=== PATIENT | male | born 1965 | race Caucasian/White ===

== ENCOUNTER 2025-02-14 10:28 | Outpatient (AMB) | payer OTHER, SELFPAY ==
--- NOTE | 2025-02-14 10:58 | PD.ORTHCLVIS ---
Vital signs 02/14/25 11:03 Height 1.78 m Height Method Stated Weight 85.814 kg Weight Measurement Method Standing Scale BMI 27.1 BP 124/77 Blood Pressure Source Automatic Cuff Blood Pressure Location Left Upper Arm Position Sitting Respiration 18 Pulse 121 H Pulse Source Monitor Temp 97.5 F Temp Source Temporal Artery Scan Pulse Oximetry (%) 96 Oxygen Delivery Method Room Air Med/Allergies Allergies & Medications Allergies No Known Allergies Allergy (Verified 02/14/25 11:03) Medication Reconciliation Unobtainable 02/14/25 [History Confirmed 02/14/25] Exam Exam Patient is in no acute distress and is cooperative with the examination today. Breathing is nonlabored. In no respiratory distress. Patient has no paraspinal tenderness. Spinal deformity cannot be appreciated. The gait of the patient is nonantalgic Bilateral extremities were evaluated and demonstrates sensation intact to light touch. Palpable pedal pulses are present. No significant edema is present. Bilateral knees were examined and the patient has full strength and range of motion.. The left hip was examined. Patient was able to flex to 90 degrees, adduct to 30 degrees, abduct to 40 degrees, internally rotate to 20 degrees, and externally rotate to 20 degrees. Patient has a negative logroll. Stinchfield is negative. The patient is nontender diffusely to touch. The right hip was examined. Patient was able to flex to 90 degrees, adduct to 30 degrees, abduct to 40 degrees, internally rotate to 10 degrees, and externally rotate to 20 degrees. Patient has a positive logroll and a positive Stinchfield Hip films are 2 years old. This demonstrates a left total hip replacement in alignment position. The right hip demonstrates severe arthritis with complete erosion of the joint space. Assessment and Plan Problem List (1) Avascular necrosis of bone of right hip: Status: Acute Plan: Gavino is a pleasant 59-year-old male with right hip pain and right hip avascular porosis. We will need new x-rays as the last ones are over 2 years old. The pain is affecting his quality life and happiness. He has tried diclofenac and has failed conservative treatment. His range of motion is severely limited We will see him back after his x-rays are done. Office Procedures GNS Level of Care Nursing/Assessment Patient Status: Initial/New Patient Nursing Assessment/Reassesment: Medication Reconciliation, Update PMH in EMR and Vital Signs Coordination of Care: Complex Care and Chronic Disease 1-5, Education Complex Pt/Fam, Consent,records obtained, informed consent, 1 Ins Authorization, Lab and Imaging orders, Results/Orders obtained and Staff clarify orders New Patient Charge New Patient Point Assignment: 1124 New Patient Point Charge: SOFTWARE DATABASE ARCHITECT Level 4 ([id number]) MA Intake Visit Data Collection New Patient or Established: New Patient (never been to [facility]) Reason for Visit:: RIGHT HIP PAIN Seen by Clinical Staff ONLY (RN/MA): No PCP or OBGYN visit in last 3 months: Yes Hx Now: No Do You Feel Safe at Home: Yes Authorities Contacted: N/A Questionairres Past Medical History Past Medical History Have you ever been diagnosed with any of the following: Respiratory Problems Smoking: No Smoking Exposure: No Subjective Visit Visit for: new patient and knee Immunization / Flu Flu Vaccine in the Last 12 Months: Yes Flu Vaccine Exclusion Criteria: Already Received History of Present Illness Chief complaint: right hip pain Patient is a 59-year-old male with right hip pain. This has been ongoing for several years and has worsened recently. He had a left hip replacement done with Dr. Dominguez. He did well from this. He reports that he has difficulty putting on socks and shoes and an in increase in pain recently Pain Pain level (0-10): 10 Pain duration: ALL DAY Pain location: groin Pain quality: sharp Pain timing: increases with activity Associated signs & symptoms: numbness, weakness and stiffness Ambulatory data Ambulatory device: cane Treatments Improvement with previous injections: No Improvement with PT: No Improvement with NSAIDS: no Review of Systems Review of Systems: All systems negative unless otherwise noted in HPI.
[2025-02-14 11:03] VITALS: BP 124/77; PULSE 121; RESP 18; TEMP 36.4; O2SAT 96; BMI 27.1
--- NOTE | 2025-02-14 11:31 | XR_ITS ---
Examination: Right knee 4 views TECHNIQUE: AP oblique lateral axial right knee 4 views Date and time: February 14, 2025 1143 hours INDICATIONS: Right knee pain beginning 6 months ago. FINDINGS: Significant osteopenia No fracture or dislocation Mild narrowing patellofemoral joint Mild narrowing medial lateral joint spaces IMPRESSION: No fracture Mild tricompartment joint narrowing
--- NOTE | 2025-02-14 11:31 | XR_ITS ---
Examination:Right hip AP, lateral, AP pelvis 3 views Technique: Hip AP lateral, AP pelvis, 3 views Exam date and time:February 14, 2025 1139 hours INDICATIONS: Right hip pain beginning 2 years ago. FINDINGS: Advanced right hip osteoarthritis Fragmentation sclerosis and radiolucencies in the right femoral head consistent with advanced avascular necrosis Total left hip arthroplasty with satisfactory alignment IMPRESSION: Advanced right hip osteoarthritis Prominent avascular necrosis right femoral head.
== END 2025-02-14 11:40 | disposition home or self-care (01) ==
LOC: HODSRG 10:28
PROVIDERS: PCP Family Medicine; Referring Provider Family Medicine; Supervising Provider Orthopaedic Surgery Adult Reconstructive Orthopaedic Surgery; Visit Provider Orthopaedic Surgery Adult Reconstructive Orthopaedic Surgery
DX: M87.851 Other osteonecrosis, right femur (principal); M25.551 Pain in right hip; M16.11 Unilateral primary osteoarthritis, right hip; M25.861 Other specified joint disorders, right knee
CPT/HCPCS: 73502; 73564; 99204; G0463

== ENCOUNTER 2025-03-07 14:42 | Outpatient (AMB) | payer OTHER, SELFPAY ==
--- NOTE | 2025-03-07 15:00 | ORTHONT_ITS ---
Vital signs 03/07/25 15:01 Height 1.78 m Height Method Stated Weight 85.049 kg Weight Measurement Method Standing Scale BMI 26.8 BP 97/52 L Blood Pressure Source Automatic Cuff Blood Pressure Location Left Upper Arm Position Sitting Respiration 18 Pulse 93 Pulse Source Monitor Temp 97.8 F Temp Source Temporal Artery Scan Pulse Oximetry (%) 92 L Oxygen Delivery Method Room Air Med/Allergies Allergies & Medications Allergies No Known Allergies Allergy (Verified 03/07/25 15:01) Medication Reconciliation Unobtainable 02/14/25 [History Confirmed 03/07/25] Exam Exam Patient is in no acute distress and is cooperative with the examination today. Breathing is nonlabored. In no respiratory distress. Patient has no paraspinal tenderness. Spinal deformity cannot be appreciated. The gait of the patient is nonantalgic Bilateral extremities were evaluated and demonstrates sensation intact to light touch. Palpable pedal pulses are present. No significant edema is present. Bilateral knees were examined and the patient has full strength and range of motion.. The left hip was examined. Patient was able to flex to 90 degrees, adduct to 30 degrees, abduct to 40 degrees, internally rotate to 20 degrees, and externally rotate to 20 degrees. Patient has a negative logroll. Stinchfield is negative. The patient is nontender diffusely to touch. The right hip was examined. Patient was able to flex to 90 degrees, adduct to 30 degrees, abduct to 40 degrees, internally rotate to 10 degrees, and externally rotate to 20 degrees. Patient has a positive logroll and a positive Stinchfield This demonstrates a left total hip replacement in alignment position. The right hip demonstrates severe arthritis with complete erosion of the joint space. Assessment and Plan Problem List (1) Avascular necrosis of bone of right hip: Status: Acute Plan: Gavino is a pleasant 59-year-old male with right hip pain and right hip avascular necrosis. He has failed conservative treatment and we discussed right total hip replacement as a reasonable option. His pain is affecting his quality of life and his happiness.We would do his surgery from an anterior approach. The nature and purpose of the total hip replacement, alternative method(s) of treatment, the material risks involved, and the possibility of complications were fully explained to the patient. The patient does NOT have any of the following contraindications to SARAH: - Active infection of the hip joint, OR - Active systemic bacteremia, OR - Active skin infection or open wound at surgical site, OR - Neuropathic arthritis, OR - Severe, rapidly progressive neurological disease, OR - Severe medical condition that makes risks of the surgery outweigh the potential benefit The patient was told the most common risks and complications associated with a total hip replacement include, but are not limited to: blood clots in the leg, fatal pulmonary embolism, dislocation of the prosthesis, intraoperative and postoperative fractures of the femur or acetabulum, infection, failure of the prosthesis or grafting materials, complications from anesthesia, reactions to blood transfusions, postoperative leg length inequality, instability of the hip replacement, nerve damage or injury, vascular injury, delayed wound healing, infection, other injury or even . We also discussed that numbness over the anterolateral thigh is common and that a limp may occur. In addition, there are risks associated with anesthesia given during this operation. Also, the patient was told that after undergoing a total hip replacement there may still be persistent pain or disability. The patient was informed that the success of this operation in part depends upon the mechanical devices which are going to be implanted and that these devices can fail or malfunction, and may need to be repaired or replaced and there are no guarantees as to the longevity of this device or its parts and that it or its parts could fail prematurely. The patient was also notified that during the course of surgery, there may be a need to use bone graft from donors, and that any bone graft used will be carefully screened for communicable diseases, including AIDS, hepatitis, Ron- Creutzfeldt, or other diseases, but despite the screening procedures, there is a small chance that they could contract one of these diseases. Finally, the patient was asked to follow completely and fully with all advice and recommended treatments, and that recovery and ultimate outcome are affected by their compliance with recommended treatment. We discussed the risks, benefits and treatment alternatives, and the patient is interested in proceeding with surgery. We will try to set this up as expeditiously as possible.? Office Procedures GNS Level of Care Nursing/Assessment Patient Status: Established Patient Nursing Assessment/Reassesment: Medication Reconciliation, Update PMH in EMR and Vital Signs Coordination of Care: Complex Care and Chronic Disease 1-5, Education Complex Pt/Fam, Consent,records obtained, informed consent, Results/Orders obtained and Staff clarify orders Established Patient Charge Established Patient Point Assignment: 95 Established Patient Point Charge: EP Level 3 (80-115) MA Intake Visit Data Collection New Patient or Established: Established Patient (seen at [facility] within 3 years) Reason for Visit:: FOLLOW UP XRAY RESULTS Seen by Clinical Staff ONLY (RN/MA): No PCP or OBGYN visit in last 3 months: Yes Hx Now: No Do You Feel Safe at Home: Yes Authorities Contacted: N/A Questionairres Past Medical History Past Medical History Have you ever been diagnosed with any of the following: Respiratory Problems Smoking: No Smoking Exposure: No Subjective Visit Visit for: new patient, follow up visit, hip, knee and x-rays Immunization / Flu Flu Vaccine in the Last 12 Months: Yes Flu Vaccine Exclusion Criteria: No Exclusion Criteria and Already Received History of Present Illness Chief complaint: right hip pain Patient is a 59-year-old male with right hip pain. This has been ongoing for several years and has worsened recently. He had a left hip replacement done with Dr. Dominguez. He did well from this. He reports that he has difficulty putting on socks and shoes and an in increase in pain recently. He has tried diclofenac for several years. Pain Pain level (0-10): 6 Pain duration: CONSTANT Pain location: groin, inside (medial) and outside (lateral) Pain quality: sharp, dull and aching Pain timing: increases with activity Associated signs & symptoms: numbness, weakness, stiffness and none Ambulatory data Ambulatory device: cane Treatments Improvement with previous injections: No Improvement with PT: No Improvement with NSAIDS: no Review of Systems Review of Systems: All systems negative unless otherwise noted in HPI.
[2025-03-07 15:01] VITALS: BP 97/52; PULSE 93; RESP 18; TEMP 36.6; O2SAT 92; BMI 26.8
--- NOTE | 2025-03-07 15:09 | XR_ITS ---
Indication: Lumbar spine 3 views TECHNIQUE: AP lateral coned lateral lower lumbar spine 3 views Date and time: March 07, 2025 1520 hours INDICATIONS: Advanced right hip osteoarthritis with avascular necrosis femoral head Lumbar levoscoliosis 20 degrees No lumbar fracture Advanced degenerative disc disease L4-L5 IMPRESSION: Advanced degenerative disease L4-L5
--- NOTE | 2025-03-07 15:09 | XR_ITS ---
Examination: AP pelvis single view Technique one AP pelvis supine single view Date and time: March 07, 2025 1517 hours INDICATIONS: Right hip pain years. FINDINGS: Advanced right hip osteoarthritis Extensive avascular necrosis right femoral head Total left hip arthroplasty with satisfactory alignment IMPRESSION: Advanced right hip osteoarthritis Advanced right hip avascular necrosis
== END 2025-03-07 15:13 | disposition home or self-care (01) ==
LOC: HODSRG 14:42
PROVIDERS: PCP Family Medicine; Referring Provider Family Medicine; Supervising Provider Orthopaedic Surgery Adult Reconstructive Orthopaedic Surgery; Visit Provider Orthopaedic Surgery Adult Reconstructive Orthopaedic Surgery
DX: M87.88 Other osteonecrosis, other site (principal); M25.551 Pain in right hip; M16.11 Unilateral primary osteoarthritis, right hip; M51.369 Other intervertebral disc degeneration, lumbar region without mention of lumbar back pain or lower extremity pain
CPT/HCPCS: 72100; 72170; 99213; G0463

== ENCOUNTER → 2025-03-24 | Outpatient (CLI) | payer MEDICAID, SELFPAY ==
--- NOTE | 2025-03-24 12:00 | XR_ITS ---
Examination: CT bilateral lower extremities, without contrast. 2-D sagittal reconstructions. 2-D coronal reconstructions. 3-D reconstructions. Date and time of exam:March 24, 2025 1225 hours INDICATIONS: Diagnosis primary unilateral osteoarthritis right hip, right hip pain 2 years CTDI: vol (mGy):10.6 DLP: (mGycm):736 Technique: Multiple 1.25 mm axial sections of the bilateral lower extremities without intravenous contrast have been obtained. 2-D sagittal and coronal reconstructions have been obtained. 3-D reconstructions have been obtained. Low dose protocols were performed. One or more of the following dose reduction techniques were used; automated exposure control, adjustment of the mA and/or KV according to patient size, use of iterative reconstruction technique. Findings: Moderate osteopenia Advanced right hip osteoarthritis, severe joint space narrowing Extensive fragmentation and bone destruction involving the right femoral head occupying more than 50% of the articulating surface Total left hip arthroplasty with satisfactory alignment Mild to moderate narrowing medial joint spaces knees No fractures IMPRESSION: Advanced right hip osteoarthritis Extensive avascular necrosis right femoral head
== END | disposition home or self-care (01) ==
PROVIDERS: PCP Family Medicine; Referring Provider Orthopaedic Surgery Adult Reconstructive Orthopaedic Surgery; Visit Provider Orthopaedic Surgery Adult Reconstructive Orthopaedic Surgery
DX: M16.11 Unilateral primary osteoarthritis, right hip (principal); M87.851 Other osteonecrosis, right femur
CPT/HCPCS: 72192; 73700

== ENCOUNTER 2025-07-03 13:37 | Outpatient (AMB) | payer MEDICAID, SELFPAY ==
[2025-07-03 13:50] VITALS: BP 133/81; PULSE 118; RESP 20; TEMP 36.9; O2SAT 95; BMI 27.9
--- NOTE | 2025-07-03 13:50 | ORTHONT_ITS ---
Vital signs 07/03/25 13:50 Height 1.78 m Height Method Stated Weight 88.451 kg Weight Measurement Method Standing Scale BMI 27.9 BP 133/81 H Blood Pressure Source Automatic Cuff Blood Pressure Location Left Upper Arm Position Sitting Respiration 20 Pulse 118 H Pulse Source Monitor Temp 98.5 F Temp Source Temporal Artery Scan Pulse Oximetry (%) 95 Oxygen Delivery Method Room Air Med/Allergies Allergies & Medications Allergies No Known Allergies Allergy (Verified 03/07/25 15:01) Medication Reconciliation Unobtainable 02/14/25 [History Confirmed 07/03/25] Exam Exam Patient is in no acute distress and is cooperative with the examination today. Breathing is nonlabored. In no respiratory distress. Patient has no paraspinal tenderness. Spinal deformity cannot be appreciated. The gait of the patient is nonantalgic Bilateral extremities were evaluated and demonstrates sensation intact to light touch. Palpable pedal pulses are present. No significant edema is present. Bilateral knees were examined and the patient has full strength and range of motion.. The left hip was examined. Patient was able to flex to 90 degrees, adduct to 30 degrees, abduct to 40 degrees, internally rotate to 20 degrees, and externally rotate to 20 degrees. Patient has a negative logroll. Stinchfield is negative. The patient is nontender diffusely to touch. The right hip was examined. Patient was able to flex to 90 degrees, adduct to 30 degrees, abduct to 40 degrees, internally rotate to 10 degrees, and externally rotate to 20 degrees. Patient has a positive logroll and a positive Stinchfield This demonstrates a left total hip replacement in alignment position. The right hip demonstrates severe arthritis with complete erosion of the joint space. Assessment and Plan Problem List (1) Avascular necrosis of bone of right hip: Status: Acute Plan: Gavino is a pleasant 59-year-old male with right hip pain and right hip avascular necrosis. He has failed conservative treatment and we discussed right total hip replacement as a reasonable option. His pain is affecting his quality of life and his happiness.We would do his surgery from an anterior approach. The nature and purpose of the total hip replacement, alternative method(s) of treatment, the material risks involved, and the possibility of complications were fully explained to the patient. The patient does NOT have any of the following contraindications to SARAH: - Active infection of the hip joint, OR - Active systemic bacteremia, OR - Active skin infection or open wound at surgical site, OR - Neuropathic arthritis, OR - Severe, rapidly progressive neurological disease, OR - Severe medical condition that makes risks of the surgery outweigh the potential benefit The patient was told the most common risks and complications associated with a total hip replacement include, but are not limited to: blood clots in the leg, fatal pulmonary embolism, dislocation of the prosthesis, intraoperative and postoperative fractures of the femur or acetabulum, infection, failure of the prosthesis or grafting materials, complications from anesthesia, reactions to blood transfusions, postoperative leg length inequality, instability of the hip replacement, nerve damage or injury, vascular injury, delayed wound healing, infection, other injury or even . We also discussed that numbness over the anterolateral thigh is common and that a limp may occur. In addition, there are risks associated with anesthesia given during this operation. Also, the patient was told that after undergoing a total hip replacement there may still be persistent pain or disability. The patient was informed that the success of this operation in part depends upon the mechanical devices which are going to be implanted and that these devices can fail or malfunction, and may need to be repaired or replaced and there are no guarantees as to the longevity of this device or its parts and that it or its parts could fail prematurely. The patient was also notified that during the course of surgery, there may be a need to use bone graft from donors, and that any bone graft used will be carefully screened for communicable diseases, including AIDS, hepatitis, Ron- Creutzfeldt, or other diseases, but despite the screening procedures, there is a small chance that they could contract one of these diseases. Finally, the patient was asked to follow completely and fully with all advice and recommended treatments, and that recovery and ultimate outcome are affected by their compliance with recommended treatment. We discussed the risks, benefits and treatment alternatives, and the patient is interested in proceeding with surgery. We will try to set this up as expeditiously as possible.? Office Procedures GNS Level of Care Nursing/Assessment Patient Status: Established Patient Nursing Assessment/Reassesment: Medication Reconciliation, Update PMH in EMR and Vital Signs Coordination of Care: Complex Care and Chronic Disease 1-5, Education Complex Pt/Fam, Consent,records obtained, informed consent, Results/Orders obtained and Staff clarify orders Established Patient Charge Established Patient Point Assignment: 95 Established Patient Point Charge: EP Level 3 (80-115) MA Intake Visit Data Collection New Patient or Established: Established Patient (seen at [facility] within 3 years) Reason for Visit:: FOLLOW UP XRAY RESULTS Seen by Clinical Staff ONLY (RN/MA): No PCP or OBGYN visit in last 3 months: Yes Hx Now: No Do You Feel Safe at Home: Yes Authorities Contacted: N/A Questionairres Past Medical History Past Medical History Have you ever been diagnosed with any of the following: Respiratory Problems Smoking: No Smoking Exposure: No Subjective Visit Visit for: follow up visit, hip and x-rays Immunization / Flu Flu Vaccine in the Last 12 Months: Yes Flu Vaccine Exclusion Criteria: No Exclusion Criteria History of Present Illness Chief complaint: right hip pain Patient is a 60-year-old male with right hip pain. This has been ongoing for several years and has worsened recently. He had a left hip replacement done with Dr. Dominguez. He did well from this. He reports that he has difficulty putting on socks and shoes and an in increase in pain recently. He has tried diclofenac for several years. We will see the patient back for surgery Pain Pain level (0-10): 6 Pain duration: CONSTANT Pain location: inside (medial) and outside (lateral) Pain quality: dull and aching Pain timing: increases with activity Associated signs & symptoms: none Ambulatory data Ambulatory device: cane Treatments Improvement with previous injections: No Improvement with PT: No Improvement with NSAIDS: no Review of Systems Review of Systems: All systems negative unless otherwise noted in HPI.
== END 2025-07-03 13:58 | disposition home or self-care (01) ==
LOC: HODSRG 13:37
PROVIDERS: PCP Family Medicine; Referring Provider Family Medicine; Supervising Provider Orthopaedic Surgery Adult Reconstructive Orthopaedic Surgery; Visit Provider Orthopaedic Surgery Adult Reconstructive Orthopaedic Surgery
DX: M25.561 Pain in right knee (principal); M25.551 Pain in right hip; Z96.642 Presence of left artificial hip joint; M87.851 Other osteonecrosis, right femur; Z96.652 Presence of left artificial knee joint
CPT/HCPCS: 99213; G0463

== ENCOUNTER 2025-07-30 17:15 | Observation (INO) | payer MEDICAID, SELFPAY ==
--- NOTE | 2025-07-24 06:00 | EKG_ITS ---
[facility] Test Date: 2025-07-24 Pat Name: MONTRELL GUTIERREZ Department: Room: - Gender: Male Brokerage Clerk: RT : 1965 Requested By: Joshua Jacome Order Number: [id number] Reading MD: Joshua Jacome Measurements Intervals [place] Rate: 86 P: 12 [place]: 173 QRS: 30 QRSD: 78 T: 30 QT: 357 QTc: 428 Interpretive Statements SINUS RHYTHM No previous ECG available for comparison /store/S0/[id number]/ecg/[id number].pdf
[2025-07-24 09:36] VITALS: BMI 29.7
[2025-07-24 11:26] LABS: Basophils # (Auto) 0.1 Thou/mm3 (0.0-0.2); Basophils % (Auto) 1 % (0-2.5); Eosinophils # (Auto) 0.2 Thou/mm3 (0.0-0.5); Eosinophils % (Auto) 3 % (0-10); Hematocrit 38.2 % (41.0-53.0); Hemoglobin 12.7 g/dL (13.5-16.0); Immature Granulocytes Auto 0.02 Thou/mm3 (0.00-0.00); Lymphocytes # (Auto) 1.9 Thou/mm3 (1.0-4.8); Lymphocytes % (Auto) 35 % (10-50); Mean Corpuscular HGB Conc 33.2 g/dl (31.0-37.0); Mean Corpuscular Hemoglobin 32.6 pg (25.0-35.0); Mean Corpuscular Volume 98 fL (80-100); Monocytes # (Auto) 0.5 Thou/mm3 (0.0-0.8); Monocytes % (Auto) 10 % (0-12); Neutrophils # (Auto) 2.9 Thou/mm3 (1.8-7.7); Neutrophils % (Auto) 52 % (37-80); Nucleated Red Blood Cell # 0.00 Thou/mm3 (0.00-0.00); Nucleated Red Blood Cell % 0 /100 WBC (0); Platelet Count 237 Thou/mm3 (140-440); RDW Standard Deviation 49.0 fL (35.1-43.9); Red Blood Count 3.90 Miln/mm3 (4.50-5.90); White Blood Count 5.6 Thou/mm3 (3.8-10.6)
[2025-07-24 11:35] LABS: INR 0.9 (0.9-1.3); Partial Thromboplastin Time 25.3 Seconds (22.0-36.0); Prothrombin Time 10.0 Seconds (9.0-12.2)
[2025-07-24 11:40] LABS: Alanine Aminotransferase 22 U/L (10-49); Albumin, Serum 4.2 gm/dL (3.4-4.8); Albumin/Globulin Ratio 1.9 (1.2-2.2); Alkaline Phosphatase 70 U/L (46-116); Anion Gap 8 (7-16); Aspartate Amino Transferase 23 U/L (0-34); BUN/Creatinine Ratio 20 Ratio (12-20); Bilirubin,Total 0.5 mg/dL (0.3-1.2); Blood Urea Nitrogen 20 mg/dL (9-23); Calcium 8.9 mg/dL (8.3-10.6); Calcium (Corrected) 8.9 mg/dL (8.5-10.1); Carbon Dioxide 29.8 mMol/L (20.0-31.0); Chloride 106 mMol/L (98-107); Creatinine (Component) 1.0 mg/dL (0.6-1.3); Estimated Creatinine Clearance 86.7 mL/min (>60); Globulin 2.2 gm/dL (2.3-3.5); Glucose 87 mg/dL (74-106); Osmolality,Calculated 288 (275-295); Potassium 4.9 mMol/L (3.4-5.1); Sodium 144 mMol/L (136-145); Total Protein 6.4 gm/dL (5.7-8.2); eGFR > 60 See Note
[2025-07-30] VITALS (9 sets, daily range): BP systolic 113–129; BP diastolic 73–86; PULSE 69–111; RESP 12–94; TEMP 36.2–36.8; O2SAT 96–100; BMI 29.5
--- NOTE | 2025-07-30 08:31 | XR_ITS ---
Examination: CT right lower extremity without contrast. 2-D sagittal reconstructions. 2-D coronal reconstructions. 3-D reconstructions. Date and time of exam: July 30, 2025, 1259 hours INDICATIONS: Status post right hip replacement, history avascular necrosis right femoral head March 24, 2025 CTDI: vol (mGy): 21.1 DLP: (mGycm): 724 Technique: Multiple 1.25 mm axial sections of the right lower extremity without contrast have been obtained. 2-D sagittal and coronal reconstructions have been obtained. 3-D reconstructions have been obtained. Low dose protocols were performed. One or more of the following dose reduction techniques were used; automated exposure control, adjustment of the mA and/or KV according to patient size, use of iterative reconstruction technique. Findings: Significant osteopenia Advanced right hip osteoarthritis Prominent avascular necrosis involving greater than 50% of the articulating surface femoral head Left hip hemiarthroplasty in satisfactory alignment Mild narrowing medial lateral patellofemoral joints bilateral knees IMPRESSION: Advanced right hip osteoarthritis Prominent avascular necrosis right femoral head
--- NOTE | 2025-07-30 16:29 | XR_ITS ---
EXAMINATION: AP right hip single view TECHNIQUE: Portable AP right hip single view Date and time: July 30, 2025, 1632 hours INDICATIONS: Postop right hip replacement FINDINGS: Total right hip arthroplasty. Satisfactory alignment Prominent osteopenia IMPRESSION: Total right hip arthroplasty with satisfactory alignment
--- NOTE | 2025-07-30 17:11 | ESOP_ITS ---
Date of Procedure 07/30/25 Pre Op Diagnosis right hip osteoarthritis Post Op Diagnosis right hip osteoarthritis Procedure right total hip replacement noah Findings full thickness cartilage loss and osteophytes Procedure Description Indications: The patient is a 60y.o. year-old with a longstanding history of right hip pain. After considering the patient's condition and the impact of their hip injury on the patient's quality of life and risks of nonoperative treatment, total hip replacement was offered as a reasonable option. Prior to the surgery I discussed the nature of the hip replacement surgery including alternatives to surgery and the purpose of, and indications for proceeding with surgery. I discussed that this surgery is a shared decision between the patient and the surgeon. Risks and benefits and alternatives of the procedure have been explained to the patient and their family. Anesthesia complications and risks include but are not limited to stroke, heart attack, and . The surgical risks include but are not limited to infection, instability/dislocation, bleeding, nerve and blood vessel injury, deep vein thrombosis, pulmonary embolus, stiffness, pain, scar, need for reoperation, leg length discrepancy, thigh numbness, weakness, and mechanical failure of the implant including loosening, metal complications, metal allergy, wear or breakage. I discussed the expected recovery from surgery and the importance of compliance with all our pre and post-operative recommendations in order to maximize the recovery. The patient/family understands the risks of loss of life, loss of limb and, loss of function and wishes to proceed. They understand they are at increased risk for infection given their history of smoking. A signed and witnessed consent was obtained and placed in the chart. Patient Positioning: The patient was placed in the lateral decubitus position on a standard table using a pegboard. An axillary role was placed. All extremities were padded to ensure adequate protection. A adam catheter was aseptically inserted. Time Out: A timeout was performed prior to the procedure which verified the correct patient, positioning, operation to be performed, operative site, antibiotics, allergies, imaging, and any other concerns. All parties were in agreement. Procedure in detail: The operative site was cleaned and draped in the usual sterile fashion. A final timeout was performed with all parties in agreement. We first placed percutaneous riccardo pins above the ASIS and attached a hip array. A modified anterolateral approach to the hip was utilized. A 16cm skin incision was made centered over the greater trochanter in line with the femur. This was taken down through skin and subcutaneous tissue using a 10 blade. Bleeding was controlled using electrocautery. The fascia was identified and split in line with the femur. The charnley retractor was then placed. The abductor insertion was identified and a split made in the anterior 1/3 of the tendon proximally. Retractors were placed and the gluteus minimus was visualized. A capsulotomy was made down to the femoral neck anterior to the minimus. A split was then made in the anterior 1/3 of the vastus lateralis. A retractor was then placed anterior to the femoral shaft, the tendon was tagged with #1 ethibond sutures and a U- shaped split was made in the anterior 1/3 of the abductor tendon being careful to leave enough tendon to re-attach. The hip was then gently externally rotated as the anterior tissues were taken down with the tendon and capsule as one sleeve. Once the anterior tissue had been release off of bone a bone hook was placed and the hip was gently dislocated. Retractors were placed around the femoral neck and the femoral neck osteotomy was then made to freshen up the cut. The femoral head removed. The leg was then placed in extension and retractors were placed anterior and posterior to the acetabulum. We first mapped the acetabulum and pelvis with a probe. The inferior capsule was release to improved visualization and the labrum and osteophytes around the acetabulum were removed. The acetabulum was then reamed to bleeding bone with adequate wall coverage and the cup was impacted into place using the [employer] robot. Screws were then placed followed by the liner which was impacted and confirmed to be seated. We then turned our attention to the femur. The leg was brought into external rotation and the femur was exposed. A canal finder was used followed by a box osteotomy and the femur was broached sequentially. The trial stem was then left in and the hip was trialed using various neck offsets and head sizes until the appropriate size was found based on leg length, stability. Once we were satisfied with the construct a cross-table AP pelvis radiograph was obtained to confirm appropriate positioning and sizing. The hip was then dislocated and the trials were then removed and the final stem impacted into placed. The hip was then again trialed and the appropriate head size identified. The garrido taper was then cleaned and dried and the final head impact into place and tested. The acetabulum was irrigated and confirmed to be free of debris. The hip was then reduced and taken through range of motion. The hip was stable in abduction and external rotation, adduction and external rot ation, flexion past 90 degrees and internal rotation past 20 degrees. It did not sublux throughout range of motion and no impingement was detected. Leg lengths were appropriately restored based on preoperative leg lengths and intraoperative testing. Lengths and offset were further verified with the robot. We then removed the pins and the greater troch marker. The hip was then copiously irrigated with dilute betadine followed by normal saline. The hip was then injected with the cocktail per protocol The hip was the closed in layers. The abductor tendon was closed with #1 ethibond. The fascia w as closed with 0 Vicryl followed by an 0 V-lock. . The deep layer was closed with 0-Vicryl and the subcutaneous layer by a 2-0 Vicryl. The subdermal layer was closed with a 3-0 monocryl. The skin was then cleaned and dried and steri- strips placed followed by a sterile dressing. The drapes were then taken down and the patient was placed supine. Leg lengths were confirmed to be appropriate and the patient's lower extremities were warm and well perfused with brisk capillary refill and palpable pulses. The patient was then awoken, transferred to the [facility] and taken to the PACU in stable condition. They tolerated the procedure well. The patient's family/caregiviers were made aware of their condition. Postoperative plan Activity: WBAT, no hip precautions , no active hip abduction DVT Prophylaxis: aspirin 81mg BID Antibiotics: Standard postoperative antibiotics x 24 hours Implants: Dee 62 cup, 6 standard insignia, 1 screw, standard liner, 40+4 head Implants Implants comments: dee Pathology / specimen None Pathology comment: none Estimated Blood Loss 150 Condition Stable Disposition observation Surgeon Rito Carpio MD Surgical Staff Operation Date: 07/30/25 13:40 Case Staff Anesthesiologist: Aram Rubi RN First Assistant: Elina Solomon
--- NOTE | 2025-07-30 17:29 | XR_ITS ---
EXAMINATION: Right hip 2 views TECHNIQUE: AP portable supine right hip 2 views Date and time: July 30, 2025, 1750 hours INDICATIONS: Post right hip arthroplasty FINDINGS: Total right hip arthroplasty. Satisfactory alignment Total left hip arthroplasty with satisfactory alignment Bones of the pelvis intact IMPRESSION: Total right hip arthroplasty with satisfactory alignment
--- NOTE | 2025-07-30 17:39 | SUR.PHASEI ---
pt received to [facility]. vss. breathing even and unlabored. denies pain and nausea. dressing to right hip cdi. report from nurse wallace and dr wilde.
--- NOTE | 2025-07-30 18:20 | SUR.PHASEI ---
report called to debbie on ms. vss. breathing even and unlabored. denies pain and nausea. xray done in pacu. tolerated ice chips. dressing to right hip remains cdi. transported do room via rney.
[2025-07-30] MEDS: ACETAMINOPHEN 500 MG TABLET 1000 MG PO (18:43)
--- NOTE | 2025-07-30 19:06 | PC.NURSE ---
pt came on the floor at 183
[2025-07-30] MEDS: oxyCODONE HCL 5 MG IR TAB 10 MG PO (19:39)
[2025-07-30] MEDS: ASPIRIN EC 81 MG TABEC PO (20:33)
[2025-07-30] MEDS: MELOXICAM 7.5 MG TABLET PO (20:33)
[2025-07-30] MEDS: oxyCODONE HCL 5 MG IR TAB PO (22:45)
[2025-07-30] MEDS: ceFAZolin/D5W 2 GM IV 2 GM/100 ML BAG IV (22:46)
[2025-07-31] VITALS: BP 119/69; PULSE 100; RESP 17; TEMP 37; O2SAT 95
[2025-07-31] MEDS: oxyCODONE HCL 5 MG IR TAB 10 MG PO ×2 (03:50→09:51)
[2025-07-31 04:00] VITALS: BP 99/71; PULSE 87; RESP 17; TEMP 37.2; O2SAT 95
[2025-07-31] MEDS: ACETAMINOPHEN 500 MG TABLET 1000 MG PO ×2 (05:56→12:27)
[2025-07-31] MEDS: ceFAZolin/D5W 2 GM IV 2 GM/100 ML BAG IV (05:56)
[2025-07-31 08:00] VITALS: BP 113/68; PULSE 88; RESP 18; TEMP 36.1; O2SAT 95
[2025-07-31] MEDS: ASPIRIN EC 81 MG TABEC PO (08:24)
--- NOTE | 2025-07-31 11:08 | PC.SS ---
Gavino Osborne is a 60 year-old male admitted to [facility] for Total Hip Replacement, Postop. SS conducted bedside contact with the patient to complete initial assessment and to discuss discharge planning. Role and reason explained. Patient confirmed demographic information. Patient identifies his mom, Larissa Osborne [phone] as his surrogate decision maker. Pt states he is able to complete all ADL?s independent. Pt has a cane and rollator. Pts PCP is Hola Mccormick. Pharmacy of choice is [facility]. Discharge options discussed and the pt wishes to return home.? Pt family will provide transport. No further intervention required at this time, pediatric social worker would be available to address any further concerns. DC Plan: Home Contact: Larissa Wilhelm Address: Confirmed on face sheet PCP: Hola Mccormick
--- NOTE | 2025-07-31 13:51 | PC.PT ---
Patient is safe to ambulate to the bathroom and in the halls with 1 staff and a FWW. RN made aware.
== END 2025-07-31 12:54 | disposition home or self-care (01) ==
LOC: S2EX 17:17 → S3NX 18:39
PROVIDERS: Anesthesiology; Admitting Provider Orthopaedic Surgery Adult Reconstructive Orthopaedic Surgery; Referring Provider Orthopaedic Surgery Adult Reconstructive Orthopaedic Surgery; Visit Provider Orthopaedic Surgery Adult Reconstructive Orthopaedic Surgery
PROC: (CPT 27130; principal; 2025-07-30 13:25)
DX: M16.11 Unilateral primary osteoarthritis, right hip (principal); Z01.810 Encounter for preprocedural cardiovascular examination; M25.751 Osteophyte, right hip
CPT/HCPCS: 27130; 20985; 72192; 73501; 73503; 73700; 87081; 92610; 93005; 96374; 97162; A4217; A4649; C1713; C1776; G0378; J0131; J0689; J0690; J1171; J2250; J2371; J2405; J2470; J2704; J3010; J3490; J7030; A4648; A9270

== ENCOUNTER 2025-08-14 13:54 | Outpatient (AMB) | payer MEDICAID, SELFPAY ==
--- NOTE | 2025-08-14 14:18 | PD.ORTHCLVIS ---
Vital signs 08/14/25 14:19 Height 1.75 m Height Method Stated Weight 95.396 kg Weight Measurement Method Standing Scale BMI 31.1 BP 104/68 Blood Pressure Source Automatic Cuff Blood Pressure Location Left Upper Arm Position Sitting Respiration 20 Pulse 80 Pulse Source Monitor Temp 98.7 F Temp Source Temporal Artery Scan Pulse Oximetry (%) 95 Oxygen Delivery Method Room Air Med/Allergies Allergies & Medications Allergies No Known Allergies Allergy (Verified 08/14/25 14:20) Medication Reconciliation baclofen 10 mg tablet 5 mg PO BID Dystonia 07/24/25 [History Confirmed 08/14/25] buspirone 30 mg tablet 20 mg PO BID Psychiatric Health 07/24/25 [History Confirmed 08/14/25] cetirizine 10 mg tablet 10 mg PO DAILY Allergies 07/24/25 [History Confirmed 08/14/25] cholecalciferol (vitamin D3) 25 mcg (1,000 unit) tablet (Vitamin D3) 25 mcg PO DAILY 07/24/25 [History Confirmed 08/14/25] diclofenac sodium 75 mg tablet,delayed release 75 mg PO DAILY Pain 07/24/25 [History Confirmed 08/14/25] divalproex 500 mg tablet,extended release 24 hr (Depakote ER) 500 mg PO DAILY PTSD-C 07/24/25 [History Confirmed 08/14/25] fluticasone propionate 50 mcg/actuation nasal spray,suspension 1 spray intranasal Q12H 07/24/25 [History Confirmed 08/14/25] propranolol 20 mg tablet 20 mg PO BID Essential Tremor 07/24/25 [History Confirmed 08/14/25] tamsulosin 0.4 mg capsule (Flomax) 0.4 mg PO DAILY Urinary flow 07/24/25 [History Confirmed 08/14/25] aspirin 81 mg tablet,delayed release 81 mg PO BID #60 tabs 07/30/25 [Rx Confirmed 08/14/25] doxycycline hyclate 100 mg tablet 100 mg PO BID #14 tabs 07/30/25 [Rx Confirmed 08/14/25] gabapentin 300 mg capsule 300 mg PO .qhs #30 caps 07/30/25 [Rx Confirmed 08/14/25] sennosides 8.6 mg-docusate sodium 50 mg tablet (Senna-S) 1 tab-cap PO QDAY #30 tabs 07/30/25 [Rx Confirmed 08/14/25] acetaminophen 500 mg tablet (Acetaminophen Extra Strength) 1,000 mg (2 x 500 mg) PO Q6H PRN pain #90 tabs 08/07/25 [Rx Confirmed 08/14/25] oxycodone 5 mg tablet 5 mg PO Q6H PRN pain #28 tabs 08/07/25 [Rx Confirmed 08/14/25] cyclobenzaprine 5 mg tablet 5 mg PO TID PRN muscle spasm #30 tabs 08/13/25 [Rx Confirmed 08/14/25] naproxen 500 mg tablet 500 mg PO BID #60 tabs 08/13/25 [Rx Confirmed 08/14/25] Exam Exam Patient is in no acute distress and is cooperative with the examination today. Breathing is nonlabored. In no respiratory distress. Patient has no paraspinal tenderness. Spinal deformity cannot be appreciated. The gait of the patient is nonantalgic Bilateral extremities were evaluated and demonstrates sensation intact to light touch. Palpable pedal pulses are present. No significant edema is present. Bilateral knees were examined and the patient has full strength and range of motion.. The left hip was examined. Patient was able to flex to 90 degrees, adduct to 30 degrees, abduct to 40 degrees, internally rotate to 20 degrees, and externally rotate to 20 degrees. Patient has a negative logroll. Stinchfield is negative. The patient is nontender diffusely to touch. Right hip incision is clean dry intact. Leg lengths are equal Assessment and Plan Problem List (1) Avascular necrosis of bone of right hip: Status: Acute Plan: Gavino is a pleasant 60-year-old male status post right total hip replacement and is doing well. Will see him back in 4 weeks. He should start outpatient physical therapy Office Procedures GNS Level of Care Nursing/Assessment Patient Status: Established Patient Nursing Assessment/Reassesment: Medication Reconciliation, Update PMH in EMR and Vital Signs Coordination of Care: Complex Care and Chronic Disease 1-5, Education Complex Pt/Fam, Consent,records obtained, informed consent, Results/Orders obtained and Staff clarify orders Established Patient Charge Established Patient Point Assignment: 95 Established Patient Point Charge: EP Level 3 (80-115) MA Intake Visit Data Collection New Patient or Established: Established Patient (seen at [facility] within 3 years) Reason for Visit:: FOLLOW UP XRAY RESULTS Seen by Clinical Staff ONLY (RN/MA): No PCP or OBGYN visit in last 3 months: Yes Hx Now: No Do You Feel Safe at Home: Yes Authorities Contacted: N/A Questionairres Past Medical History Past Medical History Have you ever been diagnosed with any of the following: Neurological Problems Seizures: No Cardiology Problems Congestive Heart Failure: No Hypotension: Yes Respiratory Problems Chronic Obstructive Pulmonary Disease (COPD): No Smoking: No Smoking Exposure: No Stomache/Intestinal Problems Hepatitis: No Genital/Urinary Problems Renal Disease: No Musculoskeletal Problems Arthritis: Yes Degenerative Disk Disease: Yes Scoliosis: Yes Endocrine Problems Diabetes Mellitus Type 1: No Diabetes Mellitus Type 2: No Psychologic Problems Depression: Yes Anxiety: Yes Post Traumatic Stress Disorder: Yes Other Problems Hospitalization: Yes Shingles: Yes Blood Transfusions: No Blood Transfusion Reaction: No Anesthesia Reactions: No Chicken Pox: Yes Clostridium Difficile: No Cancer: Yes Subjective Visit Visit for: follow up visit, hip and x-rays Immunization / Flu Flu Vaccine in the Last 12 Months: Yes Flu Vaccine Exclusion Criteria: No Exclusion Criteria History of Present Illness Chief complaint: right hip pain Gavino is 2 weeks status post right total hip replacement from a lateral approach. He is doing well. Pain is controlled at this time Pain Pain level (0-10): 6 Pain duration: CONSTANT Pain location: inside (medial) and outside (lateral) Pain quality: dull and aching Pain timing: increases with activity Associated signs & symptoms: none Ambulatory data Ambulatory device: cane Treatments Improvement with previous injections: No Improvement with PT: No Improvement with NSAIDS: no Review of Systems Review of Systems: All systems negative unless otherwise noted in HPI.
[2025-08-14 14:19] VITALS: BP 104/68; PULSE 80; RESP 20; TEMP 37.1; O2SAT 95; BMI 31.1
== END 2025-08-14 14:45 | disposition home or self-care (01) ==
PROVIDERS: PCP Family Medicine; Referring Provider Family Medicine; Supervising Provider Orthopaedic Surgery Adult Reconstructive Orthopaedic Surgery; Visit Provider Orthopaedic Surgery Adult Reconstructive Orthopaedic Surgery
DX: Z96.641 Presence of right artificial hip joint (principal)
CPT/HCPCS: 99213; G0463

== ENCOUNTER 2025-09-11 09:44 | Outpatient (AMB) | payer MEDICAID, SELFPAY ==
--- NOTE | 2025-09-11 10:31 | PD.ORTHCLVIS ---
Vital signs 09/11/25 10:51 Height 1.75 m Height Method Stated Weight 97.182 kg Weight Measurement Method Standing Scale BMI 31.7 BP 123/85 H Blood Pressure Source Automatic Cuff Blood Pressure Location Right Upper Arm Position Sitting Respiration 18 Pulse 79 Pulse Source Monitor Temp 97.7 F Temp Source Temporal Artery Scan Pulse Oximetry (%) 96 Oxygen Delivery Method Room Air Med/Allergies Allergies & Medications Allergies No Known Allergies Allergy (Verified 09/11/25 10:51) Medication Reconciliation baclofen 10 mg tablet 5 mg PO BID Dystonia 07/24/25 [History Confirmed 09/11/25] buspirone 30 mg tablet 20 mg PO BID Psychiatric Health 07/24/25 [History Confirmed 09/11/25] cetirizine 10 mg tablet 10 mg PO DAILY Allergies 07/24/25 [History Confirmed 09/11/25] cholecalciferol (vitamin D3) 25 mcg (1,000 unit) tablet (Vitamin D3) 25 mcg PO DAILY 07/24/25 [History Confirmed 09/11/25] diclofenac sodium 75 mg tablet,delayed release 75 mg PO DAILY Pain 07/24/25 [History Confirmed 09/11/25] divalproex 500 mg tablet,extended release 24 hr (Depakote ER) 500 mg PO DAILY PTSD-C 07/24/25 [History Confirmed 09/11/25] fluticasone propionate 50 mcg/actuation nasal spray,suspension 1 spray intranasal Q12H 07/24/25 [History Confirmed 09/11/25] propranolol 20 mg tablet 20 mg PO BID Essential Tremor 07/24/25 [History Confirmed 09/11/25] tamsulosin 0.4 mg capsule (Flomax) 0.4 mg PO DAILY Urinary flow 07/24/25 [History Confirmed 09/11/25] aspirin 81 mg tablet,delayed release 81 mg PO BID #60 tabs 07/30/25 [Rx Confirmed 09/11/25] doxycycline hyclate 100 mg tablet 100 mg PO BID #14 tabs 07/30/25 [Rx Confirmed 09/11/25] gabapentin 300 mg capsule 300 mg PO .qhs #30 caps 07/30/25 [Rx Confirmed 09/11/25] sennosides 8.6 mg-docusate sodium 50 mg tablet (Senna-S) 1 tab-cap PO QDAY #30 tabs 07/30/25 [Rx Confirmed 09/11/25] acetaminophen 500 mg tablet (Acetaminophen Extra Strength) 1,000 mg (2 x 500 mg) PO Q6H PRN pain #90 tabs 08/07/25 [Rx Confirmed 09/11/25] cyclobenzaprine 5 mg tablet 5 mg PO TID PRN muscle spasm #30 tabs 08/13/25 [Rx Confirmed 09/11/25] naproxen 500 mg tablet 500 mg PO BID #60 tabs 08/13/25 [Rx Confirmed 09/11/25] oxycodone 5 mg tablet 5 mg PO Q6H PRN pain #28 tabs 08/15/25 [Rx Confirmed 09/11/25] Exam Exam Patient is in no acute distress and is cooperative with the examination today. Breathing is nonlabored. In no respiratory distress. Patient has no paraspinal tenderness. Spinal deformity cannot be appreciated. The gait of the patient is nonantalgic Bilateral extremities were evaluated and demonstrates sensation intact to light touch. Palpable pedal pulses are present. No significant edema is present. Bilateral knees were examined and the patient has full strength and range of motion.. The left hip was examined. Patient was able to flex to 90 degrees, adduct to 30 degrees, abduct to 40 degrees, internally rotate to 20 degrees, and externally rotate to 20 degrees. Patient has a negative logroll. Stinchfield is negative. The patient is nontender diffusely to touch. Right hip incision is clean dry intact. Leg lengths are equal Assessment and Plan Problem List (1) Avascular necrosis of bone of right hip: Status: Acute Plan: Gavino is a pleasant 60-year-old male status post right total hip replacement and is doing well. He is starting physical therapy. We will see him back in 6 weeks for routine follow-up Office Procedures GNS Level of Care Nursing/Assessment Patient Status: Established Patient Nursing Assessment/Reassesment: Medication Reconciliation, Update PMH in EMR and Vital Signs Coordination of Care: Complex Care and Chronic Disease 1-5, Education Complex Pt/Fam, Consent,records obtained, informed consent, Results/Orders obtained and Staff clarify orders Established Patient Charge Established Patient Point Assignment: 95 Established Patient Point Charge: EP Level 3 (80-115) MA Intake Visit Data Collection New Patient or Established: Established Patient (seen at [facility] within 3 years) Reason for Visit:: HIP PAIN Seen by Clinical Staff ONLY (RN/MA): No Verbal consent obtained for Telemed visit?: No Straightening Machine Operator Required: No PCP or OBGYN visit in last 3 months: Yes Hx Now: No Do You Feel Safe at Home: Yes Authorities Contacted: N/A Questionairres Past Medical History Past Medical History Have you ever been diagnosed with any of the following: Neurological Problems Seizures: No Cardiology Problems Congestive Heart Failure: No Hypotension: Yes Respiratory Problems Chronic Obstructive Pulmonary Disease (COPD): No Smoking: No Smoking Exposure: No Stomache/Intestinal Problems Hepatitis: No Genital/Urinary Problems Renal Disease: No Musculoskeletal Problems Arthritis: Yes Degenerative Disk Disease: Yes Scoliosis: Yes Endocrine Problems Diabetes Mellitus Type 1: No Diabetes Mellitus Type 2: No Psychologic Problems Depression: Yes Anxiety: Yes Post Traumatic Stress Disorder: Yes Other Problems Hospitalization: Yes Shingles: Yes Blood Transfusions: No Blood Transfusion Reaction: No Anesthesia Reactions: No Chicken Pox: Yes Clostridium Difficile: No Cancer: Yes Subjective Visit Visit for: follow up visit, hip and x-rays Immunization / Flu Flu Vaccine in the Last 12 Months: Yes Flu Vaccine Exclusion Criteria: No Exclusion Criteria History of Present Illness Chief complaint: right hip pain Gavino is 6 weeks status post right total hip replacement from a lateral approach. He is doing well. Pain is controlled at this time Pain Pain level (0-10): 6 Pain duration: CONSTANT Pain location: inside (medial) and outside (lateral) Pain quality: dull and aching Pain timing: increases with activity Associated signs & symptoms: none Ambulatory data Ambulatory device: cane Treatments Improvement with previous injections: No Improvement with PT: No Improvement with NSAIDS: no Review of Systems Review of Systems: All systems negative unless otherwise noted in HPI.
--- NOTE | 2025-09-11 10:34 | XR_ITS ---
Examination: Right hip AP, lateral, AP pelvis 3 views Technique: Hip AP lateral, AP pelvis, 3 views Exam date and time: September 11, 2025, 1047 hours INDICATIONS: Right hip replacement 6 weeks ago, left hip replacement 3 years ago FINDINGS: Total right hip arthroplasty. Satisfactory alignment. No fracture Left hip arthroplasty. Medial protrusion of the prosthetic left hip which is stable in appearance compared with July 30, 2025 Bones of the pelvis intact IMPRESSION: Total right hip arthroplasty with satisfactory alignment
[2025-09-11 10:51] VITALS: BP 123/85; PULSE 79; RESP 18; TEMP 36.5; O2SAT 96; BMI 31.7
== END 2025-09-11 10:42 | disposition home or self-care (01) ==
LOC: HODSRG 09:44
PROVIDERS: Supervising Provider Orthopaedic Surgery Adult Reconstructive Orthopaedic Surgery; Visit Provider Orthopaedic Surgery Adult Reconstructive Orthopaedic Surgery
DX: Z47.1 Aftercare following joint replacement surgery (principal); Z96.641 Presence of right artificial hip joint; M25.551 Pain in right hip
CPT/HCPCS: 73502; 99213; G0463